=== PATIENT | female | born 1995 | race Caucasian/White ===

== ENCOUNTER 2022-08-15 09:02 | Outpatient (CLI) | payer BC, SELFPAY ==
[2022-08-15 10:34] LABS: Albumin* 4.5 g/dL (3.3-5.0); Chloride* 106 mmol/L (96-114); Sodium* 142 mmol/L (135-149)
[2022-08-15 10:36] LABS: Cholesterol* 199 mg/dL (90-199); Creatinine* 0.7 mg/dL (0.5-1.5); Estimated Glomerular Filt Rate 121 ml/min
[2022-08-15 10:37] LABS: Alkaline Phosphatase* 94 U/L (40-150); Aspartate Amino Transferase* 25 U/L (12-35); Bilirubin Total* 0.5 mg/dL (0.1-1.5); Blood Urea Nitrogen* 12 mg/dL (5-24); Carbon Dioxide* 25 mmol/L (20-32); Glucose* 87 mg/dL (60-115)
[2022-08-15 10:38] LABS: Alanine Aminotransferase* 25 U/L (4-35); Calcium* 9.1 mg/dL (8.4-10.6); HDL Cholesterol* 56 mg/dL (>=50); LDL Cholesterol Calculated 114 mg/dL (<100); Triglycerides* 143 mg/dL (40-149)
[2022-08-15 10:56] LABS: Vitamin D 25 Hydroxy* 54 ng/mL (30-80)
== END 2022-08-15 09:03 | disposition home or self-care (01) ==
PROVIDERS: PCP Family Medicine; Visit Provider Family Medicine
DX: Z01.419 Encounter for gynecological examination (general) (routine) without abnormal findings (principal); E55.9 Vitamin D deficiency, unspecified; E61.1 Iron deficiency; N92.0 Excessive and frequent menstruation with regular cycle; D68.59 Other primary thrombophilia; Z13.6 Encounter for screening for cardiovascular disorders
CPT/HCPCS: 80053; 80061; 82306

== ENCOUNTER 2022-08-18 13:07 | Outpatient (CLI) | payer BC, SELFPAY ==
[2022-08-18 17:23] LABS: Ferritin* 20.6 ng/mL (6.24-137.0)
== END 2022-08-18 13:08 | disposition home or self-care (01) ==
LOC: NFLDREF 13:09
PROVIDERS: PCP Family Medicine; Visit Provider Family Medicine
DX: Z01.419 Encounter for gynecological examination (general) (routine) without abnormal findings (principal); E61.1 Iron deficiency
CPT/HCPCS: 82728

== ENCOUNTER 2023-10-26 07:36 | Outpatient (CLI) | payer BC, SELFPAY | END 2023-10-26 07:37 | disposition home or self-care (01) | LOC: NFLDREF 11-07 18:11 | PROVIDERS: PCP Family Medicine; Referring Provider Family Medicine; Visit Provider Family Medicine | DX: D68.59 Other primary thrombophilia (principal); E55.9 Vitamin D deficiency, unspecified; E61.1 Iron deficiency; E78.5 Hyperlipidemia, unspecified | CPT/HCPCS: 80053; 80061; 82306; 82728 ==

== ENCOUNTER 2024-10-25 07:40 | Outpatient (CLI) | payer BC, SELFPAY | END 2024-10-25 07:41 | disposition home or self-care (01) | LOC: NFLDREF 10-29 05:36 | PROVIDERS: PCP Family Medicine; Referring Provider Family Medicine; Visit Provider Family Medicine | DX: E55.9 Vitamin D deficiency, unspecified (principal); R53.83 Other fatigue; K59.00 Constipation, unspecified; M81.0 Age-related osteoporosis without current pathological fracture; E78.5 Hyperlipidemia, unspecified; Z86.2 Personal history of diseases of the blood and blood-forming organs and certain disorders involving the immune mechanism; Z13.29 Encounter for screening for other suspected endocrine disorder | CPT/HCPCS: 80053; 80061; 82306; 82728; 84443 ==